=== PATIENT | male | born 1965 | race Two or more races ===

== ENCOUNTER 2017-08-21 13:34 | Emergency (ER) | payer OTHER ==
[~2017-08-21] VITALS: Ht 177.8 cm; Wt 85.3 kg
[2017-08-21] MEDS ORDERED: NORCO 10/3251 TABLET PO (15:58)
[2017-08-21 16:45] VITALS: BP 136/108
== END 2017-08-21 16:46 | disposition home or self-care (01) ==
LOC: EME 13:34
PROC: 0RSKXZZ Reposition Left Shoulder Joint, External Approach (ICD-10-PCS; principal; 2017-08-21)
DX: S43.005A Unspecified dislocation of left shoulder joint, initial encounter (principal); V00.311A Fall from snowboard, initial encounter; Y93.23 Activity, snow (alpine) (downhill) skiing, snowboarding, sledding, tobogganing and snow tubing
CPT/HCPCS: 73030; 99281; 99284; J3010; J7040